=== PATIENT | male | born 1940 | race Asian ===

== ENCOUNTER 2017-04-22 10:03 | Day surgery (SDC) | payer OTHER ==
[~2017-04-22] VITALS: Ht 160 cm; Wt 70.6 kg
[2017-04-22 10:39] VITALS: Ht 160 cm; Wt 70.6 kg
[2017-04-22] MEDS ORDERED: TRAZ50TA18 PO (10:45)
[2017-04-22] MEDS ORDERED: TIOT18CA INHALATION (10:45)
[2017-04-22] MEDS ORDERED: IRBE150T21 PO (10:45)
[2017-04-22] MEDS ORDERED: ATOR40TA68 PO (10:45)
[2017-04-22] MEDS ORDERED: OMEP40CA6 PO (10:45)
[2017-04-22] MEDS ORDERED: LORA10TA3 PO (10:45)
[2017-04-22] MEDS ORDERED: ALLO100T PO (10:45)
[2017-04-22 11:04] VITALS: BP 165/82; PULSE 71; RESP 18
--- NOTE | 2017-04-22 12:13 | OPPN ---
Date/Time of Note Date/Time of Note DATE: 04/22/17 TIME: 12:09 Proc Note GI Procedure date: Apr 22, 2017 Pre-procedure Diagnosis Screening colonoscopy Post-procedure Diagnosis 3 mm polyp in the mid transverse colon removed with the help of a cold biopsy forceps Operation Performed Colonoscopy and biopsy Surgeon: MANE DIAZ MD Anesthesia Type: other Tourniquet Time: None Estimated blood loss: none (None) Specimens Small biopsy was done from polyp from the mid transverse colon Grafts/Implants None Tubes/Drains None Complications None Operative\Procedure Findings Colon polyp in the mid transverse colon Procedure Description Colonoscopy After informed written consent was obtained patient was ostial in the left lateral side 3 mg Versed and 50 mcg of fentanyl was given as intravenous anesthesia The patient become somnolent with Olympus video colonoscope was introduced into the rectum and advanced all the way to the cecum. 3 mm polyp was noted in the mid transverse colon and this was removed with the help of a cold biopsy forceps Rest of the colon appeared perfectly normal and revealed minimal internal hemorrhoids were noted on retroflexion Minimal external hemorrhoids noted on the removal of the scope MANE DIAZ MD Apr 22, 2017 12:13
[2017-04-22] MEDS ORDERED: FENTAnyl 50 MCG/ML VIAL ONE (12:21)
[2017-04-22] MEDS ORDERED: MIDAZOLAM 1 MG/ML 2 ML INJ ONE ×2 (12:21)
[2017-04-22 12:44] VITALS: BP 138/64; PULSE 66
== END 2017-04-22 15:00 | disposition home or self-care (01) ==
LOC: GIL 10:03
PROVIDERS: ATTEND Internal Medicine Gastroenterology
DX: Z12.11 Encounter for screening for malignant neoplasm of colon (principal); D12.3 Benign neoplasm of transverse colon
CPT/HCPCS: 45380; 88305; J2250; J3010